=== PATIENT | female | born 1960 | race Caucasian/White ===

== ENCOUNTER 2017-11-02 09:21 | Inpatient (IN) ==
[2017-10-28 20:02] LABS: Basophils # (Auto) 0 K/mcL (0.0-0.3); Basophils % (Auto) 0.3 % (0.0-2.0); Eosinophils # (Auto) 0.1 K/mcL (0.0-0.7); Eosinophils % (Auto) 1.3 % (0.0-7.0); Granulocytes % (Auto) 68.8 % (38.0-78.0); Lymphocytes # (Auto) 2.5 K/mcL (1.5-4.8); Lymphocytes % (Auto) 23.9 % (15.5-49.0); Mean Cell Volume 95.6 fL (80.0-100.0); Mean Corpuscular HGB Conc 34.1 g/dL (31.0-36.0); Mean Corpuscular Hemoglobin 32.6 pg (26.0-34.0); Monocytes # (Auto) 0.6 K/mcL (0.1-0.9); Monocytes % (Auto) 5.7 % (1.0-12.0); Platelet Count 158 K/mcL (140-440); RBC 4.67 M/mcL (4.00-5.20); Red Cell Distribution Width 13.8 % (11.5-14.5)
[2017-10-28 20:18] LABS: Blood Urea Nitrogen 13 mg/dl (6-20)
[2017-10-29 10:59] LABS: Appearance,Urine CLEAR; Bacteria,Urine 0 /hpf (0); Bilirubin,Urine NEG (NEG); Color,Urine STRAW; Glucose,Urine (UA) NEGATIVE (NEG); Leukocyte Esterase,Urine NEG /uL (NEG); Protein,Urine NEG (NEG); Specific Gravity,Urine 1.008 (1.000-1.035); Urine Blood NEG mg/dL (<0.03); Urine RBC < 1 /hpf (0-1); Urine Squamous Epithelial Cell 3 /hpf (0-4); Urine WBC 1 /hpf (0-4); Urobilinogen,Urine NEG (NEG)
[~2017-11-02 09:21] MED LIST: ACETAMINOPHEN 500 MG TABLET PO SCH; CELECOXIB 200 MG CAPSULE PO SCH; PREGABALIN 75 MG CAPSULE PO SCH; ceFAZolin 1 GM VIAL IV SCH; oxyCODONE 10 MG TAB.ER.12H PO SCH
[2017-11-02] MEDS ORDERED: KETOROLAC 30 MG, ROPIVACAINE HCL/PF 49.5 ML, EPINEPHrine 0.5 MG, 0.9 % SODIUM CHLORIDE ... IJ ONE (10:17)
[2017-11-02] MEDS ORDERED: GENTAMICIN SULFATE 800 MG/20 ML VIAL IR ONE (11:29)
[2017-11-02] MEDS ORDERED: ONDANSETRON 4 MG/2 ML VIAL IV ONE (11:50)
[2017-11-02] MEDS ORDERED: PHENYLEPHRINE 10 MG/ML VIAL IV ONE (11:50)
[2017-11-02] MEDS ORDERED: LIDOCAINE HCL/PF 100 MG/5 ML SYRINGE IV ONE (11:50)
[2017-11-02] MEDS ORDERED: KETAMINE 100 MG/ML ML IV ONE (11:50)
[2017-11-02] MEDS ORDERED: MIDAZOLAM 2 MG/2 ML VIAL IV ONE (11:50)
[2017-11-02] MEDS ORDERED: TRANEXAMIC ACID 1,000 MG/10 ML VIAL IV ONE ×2 (11:50→13:38)
[2017-11-02] MEDS ORDERED: PROPOFOL 200 MG/20 ML VIAL IV ONE (11:50)
[2017-11-02] MEDS ORDERED: GLYCOPYRROLATE 0.2 MG/ML VIAL IV ONE (11:50)
[2017-11-02] MEDS ORDERED: MEPERIDINE 25 MG/ML SYRINGE IV PRN (13:34)
[2017-11-02] MEDS ORDERED: IPRATROPIUM/ALBUTEROL 3 ML AMPUL.NEB NEB PRN (13:34)
[2017-11-02] MEDS ORDERED: fentaNYL 100 MCG/2 ML VIAL IV PRN (13:34)
[2017-11-02] MEDS ORDERED: METHOCARBAMOL 1,000 MG/10 ML VIAL IV PRN (13:34)
[2017-11-02] MEDS ORDERED: PROMETHAZINE 25 MG/ML VIAL IV PRN (13:34)
[2017-11-02] MEDS ORDERED: FLEETS ADULT ENEMA PR PRN (13:38)
[2017-11-02] MEDS ORDERED: BISACODYL 10 MG SUPP.RECT PR PRN (13:38)
[2017-11-02] MEDS ORDERED: POLYETHYLENE GLYCOL 3350 17 GM PACKET PO PRN (13:38)
[2017-11-02] MEDS ORDERED: HYDROmorphone 2 MG/ML VIAL IV PRN (13:38)
[2017-11-02] MEDS ORDERED: TEMAZEPAM 15 MG CAPSULE PO PRN (13:38)
[2017-11-02] MEDS ORDERED: BENZOCAINE/MENTHOL 1 LOZENGE PO PRN (13:38)
[2017-11-02] MEDS ORDERED: MAGNESIUM HYDROXIDE 30 ML ORAL.SUSP PO PRN (13:38)
[2017-11-02] MEDS ORDERED: ACETAMINOPHEN 325 MG TABLET PO PRN (13:38)
[2017-11-02] MEDS ORDERED: ONDANSETRON 4 MG/2 ML VIAL IV PRN (13:38)
[2017-11-02] MEDS ORDERED: PROMETHAZINE 25 MG/ML VIAL ONE (13:42)
[2017-11-02] MEDS ORDERED: IPRATROPIUM/ALBUTEROL 3 ML AMPUL.NEB NEB ONE (13:43)
[2017-11-02] MEDS ORDERED: LACTATED RINGERS 1,000 ML IV SCH (13:45)
--- NOTE | 2017-11-02 14:29 | XRay Report ---
HISTORY: Reason for Exam:Post-Op Total Hip FINDINGS: There is a well-positioned left total hip prosthesis. There is no fracture or periarticular soft tissue calcification. There is a coarse macrocalcification in the left adnexa. This was seen on a prior pelvic CT and remains stable. IMPRESSION: Well-positioned left hip prosthesis Interpreted and Authenticated by: Danyel Galan 11/02/17
[2017-11-02] MEDS: 0.9 % SODIUM CHLORIDE 10 ML SYRINGE IV SCH ×2 (14:37→20:17)
--- NOTE | 2017-11-02 15:17 | Brief Operative Note ---
Date of procedure: 11/02/17 Pre-op diagnosis: left hip djd severe Post-op diagnosis: same Procedure: left total hip Grafts/Implants: Yes Anesthesia: GETA Complications: none Complications Description: 11/02/17 15:16 none Surgeon: Maikel Ryan Gang Miner: Cain Camacho Estimated blood loss (cc): 20 Tourniquet Time (Minutes): 50 Specimens Removed/Pathology: none sent Condition: stable Disposition: PACU
--- NOTE | 2017-11-02 16:09 | Operative Note ---
DATE OF OPERATION: 11/02/2017 PREOPERATIVE DIAGNOSIS: Left hip degenerative arthritis. POSTOPERATIVE DIAGNOSIS: Left hip degenerative arthritis. PROCEDURE: Left total hip arthroplasty. SURGEON: Maikel Ryan M.D. EQUALIZING SAW OPERATOR: Cain Camacho PA-C. ANESTHESIA: General LMA anesthesia. COMPLICATIONS: None. ESTIMATED BLOOD LOSS: About 20 to 50 mL. IMPLANTS: A size 3 femoral stem cementless with a 52 mm cup with a neutral 36 mm head. Images were taken during the case. DESCRIPTION OF PROCEDURE: The patient was brought to the operating room and put to sleep with general LMA anesthesia. Once asleep, a timeout was performed confirming the operative site. We made a superior approach to the hip, dissecting down through the fascial layer and released the superior capsule. We dislocated the hip superiorly, and we made our neck cut at about 34 mm. I then reamed up to the size 52, implanted a 52 cup with a 30 mm screw with good purchase. We placed a poly liner without a knight. It was made for a 36 mm implant. This was very stable. The alignment was excellent. We then prepared the femur. This was broached up to the size of 3. A 3 stem was then placed at 15 degrees of anteversion. This was imaged, the trial. On the image it was noted the leg was slightly longer than the other leg. We then broached to settle the stem to the lateral calcar, and this seemed to fit very nicely. The leg lengths were very equal at that point, as well as stability up to 90 degrees of rotation. We irrigated thoroughly. We then put the final implant in place, a 36 mm neutral neck head. This was reduced, very stable once more. We repaired the capsule posteriorly and then closed the fascial layer with #1 Stratafix, closed the fatty layer with #1 Stratafix, and then closed the skin with 2-0 Vicryls and jose g. The patient tolerated this well. There was no complication. RBH:bebeto Job ID: [id number] Doc ID: [id number] Maikel Ryan MD
[2017-11-02] MEDS: 0.45 % SODIUM CHLORIDE 1,000 ML IV SCH (17:37)
[2017-11-02] MEDS: NICOTINE 14 MG PATCH ONE ×2 (18:51→19:05)
[2017-11-02] MEDS: HYDROcodone/APAP 10/325MG TABLET PO PRN (18:52)
[2017-11-02] MEDS: NICOTINE 21 MG PATCH TOPICAL SCH (18:59)
[2017-11-02] MEDS ORDERED: NICOTINE 21 MG PATCH ONE (19:01)
[2017-11-02] MEDS: risperiDONE 1 MG TABLET PO SCH ×2 (19:53→20:17)
[2017-11-02] MEDS: cloNIDine HCL 0.1 MG TABLET PO SCH ×2 (19:53→20:17)
[2017-11-02] MEDS: diphenhydrAMINE 25 MG CAPSULE PO SCH ×2 (19:53→20:22)
[2017-11-02] MEDS: CELECOXIB 200 MG CAPSULE PO SCH ×2 (19:53→20:17)
[2017-11-02] MEDS: PRAZOSIN 1 MG CAPSULE PO SCH ×2 (19:53→20:17)
[2017-11-02] MEDS: DOCUSATE SODIUM 100 MG CAPSULE PO SCH (19:54)
[2017-11-02] MEDS: traZODone HCL 150 MG TABLET PO SCH ×2 (19:54→20:17)
[2017-11-02] MEDS: ASPIRIN 325 MG ENTERIC COATED TABLET PO SCH (19:54)
[2017-11-02] MEDS: ceFAZolin 1 GM VIAL IV SCH ×2 (19:55→20:51)
[2017-11-02] MEDS: KETOROLAC 15 MG/ML VIAL IV PRN (20:51)
[2017-11-02] MEDS ORDERED: TEMAZEPAM 15 MG CAPSULE PO SCH (21:00)
[2017-11-02] MEDS ORDERED: TRIAZOLAM 0.25 MG PO SCH (21:00)
[2017-11-02] MEDS ORDERED: SENNOSIDES 1 TABLET PO SCH (21:00)
[2017-11-02] MEDS ORDERED: SERTRALINE 50 MG TABLET PO SCH (21:00)
[2017-11-03] MEDS: 0.45 % SODIUM CHLORIDE 1,000 ML IV SCH ×2 (00:09→09:49)
[2017-11-03] MEDS: HYDROcodone/APAP 10/325MG TABLET PO PRN ×4 (00:11→15:18)
[2017-11-03] MEDS: KETOROLAC 15 MG/ML VIAL IV PRN (03:44)
[2017-11-03] MEDS: ceFAZolin 1 GM VIAL IV SCH (03:44)
[2017-11-03] MEDS: 0.9 % SODIUM CHLORIDE 10 ML SYRINGE IV SCH ×2 (04:30→15:20)
[2017-11-03] MEDS ORDERED: OMEPRAZOLE 20 MG CAPSULE PO SCH (07:30)
[2017-11-03] MEDS: CELECOXIB 200 MG CAPSULE PO SCH (08:02)
[2017-11-03] MEDS: cloNIDine HCL 0.1 MG TABLET PO SCH (08:02)
[2017-11-03] MEDS: ASPIRIN 325 MG ENTERIC COATED TABLET PO SCH (08:02)
[2017-11-03] MEDS: DOCUSATE SODIUM 100 MG CAPSULE PO SCH (08:03)
[2017-11-03] MEDS ORDERED: LORATADINE 10 MG TABLET PO SCH (09:00)
[2017-11-03] MEDS ORDERED: OXYBUTYNIN CHLORIDE 5 MG TAB.XL.24H PO SCH (09:00)
[2017-11-03] MEDS: NICOTINE 21 MG PATCH TOPICAL SCH (10:26)
--- NOTE | 2017-11-03 12:40 | Discharge Summary ---
Ortho Discharge - [facility] - Patient Instructions Diet: Regular Diet Activity: activity as tolerated, weight bearing as tolerated Total Hip Protocol: Follow activity instructions as provided by Physical Therapy. Dressing Care: No dressing - open to air - Follow Up Plan Follow Up Appointments: Cain Camacho PA-C [Physician Oven Technician] - 11/17/17 3:10 pm Disposition: Hospice - Home Prognosis: Good Rehab Potential: Good I certify that the patient requires SNF services: No Overall status at discharge: patient is progressing back to baseline - Orders For Discharge Prescriptions: HYDROcodone/APAP 10/325MG [[place] 10-325Mg] 10 - 20 mg PO Q4HP PRN #60 tab PRN Reason: Pain Level 3-6 Additional Discharge Orders: Physical Therapy at Discharge - [facility] Location: Determined By Patient Toilet Riser Discharge Order Location: Determined By Patient Walker Location: Determined By Patient
== END 2017-11-03 15:35 | disposition hospice, home (50) | DRG 470 ==
LOC: MEDSUR 09:21
PROVIDERS: ADMIT Orthopaedic Surgery; ATTEND Orthopaedic Surgery

== ENCOUNTER 2017-12-25 11:30 | Inpatient (IN) ==
[2017-12-25 15:05] LABS: Basophils # (Auto) 0 K/mcL (0.0-0.3); Basophils % (Auto) 0.3 % (0.0-2.0); Eosinophils # (Auto) 0.1 K/mcL (0.0-0.7); Eosinophils % (Auto) 0.9 % (0.0-7.0); Granulocytes % (Auto) 60.6 % (38.0-78.0); Lymphocytes # (Auto) 2.2 K/mcL (1.5-4.8); Lymphocytes % (Auto) 30.6 % (15.5-49.0); Mean Cell Volume 94.2 fL (80.0-100.0); Mean Corpuscular HGB Conc 34.9 g/dL (31.0-36.0); Mean Corpuscular Hemoglobin 32.9 pg (26.0-34.0); Monocytes # (Auto) 0.5 K/mcL (0.1-0.9); Monocytes % (Auto) 7.6 % (1.0-12.0); Platelet Count 162 K/mcL (140-440); RBC 4.34 M/mcL (4.00-5.20); Red Cell Distribution Width 13.7 % (11.5-14.5)
[2017-12-25 15:28] LABS: Appearance,Urine CLEAR; Bilirubin,Urine NEG (NEG); Color,Urine YELLOW; Glucose,Urine (UA) NEGATIVE (NEG); Leukocyte Esterase,Urine NEG /uL (NEG); Protein,Urine NEG (NEG); Specific Gravity,Urine 1.011 (1.000-1.035); Urine Blood NEG mg/dL (<0.03); Urobilinogen,Urine NEG (NEG)
[2017-12-25 16:20] LABS: Blood Urea Nitrogen 12 mg/dl (6-20)
[2017-12-28] MEDS ORDERED: PREGABALIN 75 MG CAPSULE PO SCH (07:00)
[2017-12-28] MEDS ORDERED: oxyCODONE 10 MG TAB.ER.12H PO SCH (07:00)
[2017-12-28] MEDS ORDERED: 0.9 % SODIUM CHLORIDE 9 ML, KETOROLAC 30 MG, ROPIVACAINE HCL/PF 49.5 ML, EPINEPHrine 0.... IJ SCH (07:00)
[2017-12-28] MEDS ORDERED: ACETAMINOPHEN 500 MG TABLET PO SCH (07:45)
[2017-12-28] MEDS ORDERED: ceFAZolin 1 GM VIAL IV SCH (07:45)
[2017-12-28] MEDS ORDERED: IPRATROPIUM/ALBUTEROL 3 ML AMPUL.NEB NEB ONE (15:44)
[2017-12-28] MEDS ORDERED: ONDANSETRON 4 MG/2 ML VIAL ONE (16:15)
[2017-12-28] MEDS ORDERED: PHENYLEPHRINE 10 MG/ML VIAL ONE (16:15)
[2017-12-28] MEDS ORDERED: MIDAZOLAM 5 MG/5 ML VIAL ONE (16:15)
[2017-12-28] MEDS ORDERED: DEXAMETHASONE 10 MG/ML VIAL ONE (16:15)
[2017-12-28] MEDS ORDERED: LIDOCAINE HCL/PF 100 MG/5 ML SYRINGE IV ONE (16:15)
[2017-12-28] MEDS ORDERED: SUCCINYLCHOLINE 20 MG/ML ML IV ONE (16:15)
[2017-12-28] MEDS ORDERED: PROPOFOL 200 MG/20 ML VIAL IV ONE (16:15)
[2017-12-28] MEDS ORDERED: KETAMINE 100 MG/ML ML ONE (16:15)
[2017-12-28] MEDS ORDERED: ONDANSETRON 4 MG/2 ML VIAL IV PRN ×2 (17:15→17:37)
[2017-12-28] MEDS ORDERED: METHOCARBAMOL 1,000 MG/10 ML VIAL IV PRN (17:15)
[2017-12-28] MEDS ORDERED: NALOXONE HCL 0.4 MG/ML VIAL IV PRN (17:15)
[2017-12-28] MEDS ORDERED: LACTATED RINGERS 1,000 ML IV SCH (17:15)
[2017-12-28] MEDS ORDERED: PROMETHAZINE 25 MG/ML VIAL IV PRN (17:15)
[2017-12-28] MEDS ORDERED: HYDROmorphone 2 MG/ML VIAL IV PRN (17:15)
[2017-12-28] MEDS ORDERED: IPRATROPIUM/ALBUTEROL 3 ML AMPUL.NEB NEB PRN (17:15)
[2017-12-28] MEDS ORDERED: METOPROLOL TARTRATE 5 MG/5 ML VIAL IV PRN (17:15)
[2017-12-28] MEDS ORDERED: ATROPINE SULFATE 0.4 MG/ML VIAL IV PRN (17:15)
[2017-12-28] MEDS ORDERED: diphenhydrAMINE 50 MG/ML VIAL IV PRN (17:15)
[2017-12-28] MEDS ORDERED: FLUMAZENIL 0.1 MG/ML ML IV PRN (17:15)
[2017-12-28] MEDS ORDERED: ePHEDrine 50 MG/ML AMPUL IV PRN (17:15)
[2017-12-28] MEDS ORDERED: MEPERIDINE 25 MG/ML SYRINGE IV PRN (17:15)
[2017-12-28] MEDS ORDERED: fentaNYL 100 MCG/2 ML VIAL IV PRN (17:15)
[2017-12-28] MEDS ORDERED: GENTAMICIN SULFATE 800 MG/20 ML VIAL IR ONE (17:34)
[2017-12-28] MEDS ORDERED: KETOROLAC 15 MG/ML VIAL IV PRN (17:37)
[2017-12-28] MEDS ORDERED: POLYETHYLENE GLYCOL 3350 17 GM PACKET PO PRN (17:37)
[2017-12-28] MEDS ORDERED: ACETAMINOPHEN 325 MG TABLET PO PRN (17:37)
[2017-12-28] MEDS ORDERED: MAGNESIUM HYDROXIDE 30 ML ORAL.SUSP PO PRN (17:37)
[2017-12-28] MEDS ORDERED: BISACODYL 10 MG SUPP.RECT PR PRN (17:37)
[2017-12-28] MEDS ORDERED: BENZOCAINE/MENTHOL 1 LOZENGE PO PRN (17:37)
[2017-12-28] MEDS ORDERED: HYDROcodone/APAP 10/325MG TABLET PO PRN (17:37)
[2017-12-28] MEDS ORDERED: TEMAZEPAM 15 MG CAPSULE PO PRN (17:37)
[2017-12-28] MEDS ORDERED: FLEETS ADULT ENEMA PR PRN (17:37)
[2017-12-28] MEDS ORDERED: TRANEXAMIC ACID 1,000 MG/10 ML VIAL IV ONE ×2 (17:37→17:53)
--- NOTE | 2017-12-28 17:37 | Brief Operative Note ---
Date of procedure: 12/28/17 Pre-op diagnosis: left posterior hip dislocation Post-op diagnosis: same Procedure: left hip revision one component cup Grafts/Implants: Yes Anesthesia: GETA, none Surgeon: Maikel Ryan Asbestos Textile Supervisor: Alonso Devi Estimated blood loss (cc): 20 Specimens Removed/Pathology: none sent Condition: stable Disposition: PACU
[2017-12-28] MEDS ORDERED: METHOCARBAMOL 1,000 MG/10 ML VIAL IV ONE (17:52)
[2017-12-28] MEDS ORDERED: ALBUTEROL SULFATE 1 PUFF INHALER INH PRN (17:57)
[2017-12-28] MEDS ORDERED: NICOTINE 21 MG PATCH ONE (19:03)
[2017-12-28] MEDS: ASPIRIN 325 MG ENTERIC COATED TABLET PO SCH (20:55)
[2017-12-28] MEDS: DOCUSATE SODIUM 100 MG CAPSULE PO SCH (20:55)
[2017-12-28] MEDS: 0.45 % SODIUM CHLORIDE 1,000 ML IV SCH (20:55)
[2017-12-28] MEDS: 0.9 % SODIUM CHLORIDE 10 ML SYRINGE IV SCH (20:56)
[2017-12-28] MEDS ORDERED: SERTRALINE 50 MG TABLET PO SCH (21:00)
[2017-12-28] MEDS ORDERED: SENNOSIDES 1 TABLET PO SCH (21:00)
[2017-12-28] MEDS ORDERED: QUEtiapine 25 MG TABLET PO SCH (21:00)
[2017-12-28] MEDS: HYDROmorphone 2 MG/ML VIAL IV PRN (22:42)
[2017-12-28] MEDS: NICOTINE 21 MG PATCH TOPICAL SCH (22:43)
[2017-12-29] MEDS: ceFAZolin 1 GM VIAL IV SCH ×2 (00:32→11:07)
[2017-12-29] MEDS ORDERED: ceFAZolin 1 GM VIAL ONE (00:33)
[2017-12-29] MEDS: HYDROmorphone 2 MG/ML VIAL IV PRN (04:18)
[2017-12-29] MEDS: 0.9 % SODIUM CHLORIDE 10 ML SYRINGE IV SCH ×2 (04:23→16:35)
[2017-12-29] MEDS: 0.45 % SODIUM CHLORIDE 1,000 ML IV SCH (04:24)
[2017-12-29] MEDS: NICOTINE 21 MG PATCH TOPICAL SCH ×2 (07:20→11:00)
[2017-12-29] MEDS ORDERED: OMEPRAZOLE 20 MG CAPSULE PO SCH (07:30)
--- NOTE | 2017-12-29 07:40 | Discharge Summary ---
Ortho Discharge - [facility] - Patient Instructions Diet: Regular Diet Activity: activity as tolerated, weight bearing as tolerated Total Hip Protocol: Follow activity instructions as provided by Physical Therapy. Dressing Care: [place] - leave on for 5 days - Follow Up Plan Follow Up Appointments: Cain Camacho PA-C [Physician Timekeeper Supervisor] - 01/12/18 1:10 pm Disposition: Home, Self-Care Prognosis: Good Rehab Potential: Good I certify that the patient requires SNF services: No Overall status at discharge: patient is progressing back to baseline - Orders For Discharge Prescriptions: HYDROcodone/APAP 10/325MG [[place] 10-325Mg] 10 - 20 mg PO Q4HP PRN #60 tab PRN Reason: Pain Level 3-6 oxyCODONE HCL [Roxicodone] 5 - 10 mg PO Q4-6HP PRN #60 tab PRN Reason: Pain Additional Discharge Orders: Physical Therapy at Discharge - [facility] Location: None Selected Physical Therapy at Discharge - [facility] Location: None Selected To[facility]t [facility] Discharge Order Location: None Selected
--- NOTE | 2017-12-29 07:46 | XRay Report ---
HISTORY: ITS.REASON: Post-Op Total Hip FINDINGS: There is a well-positioned left total hip prosthesis. No fracture is present and there are no abnormal soft tissue calcifications around the joint. A large spur is seen along the inferior border of the left SI joint. There is arthritis in the facets in the lower lumbar spine. IMPRESSION: Well-positioned left hip prosthesis Interpreted and Authenticated by: Danyel Galan 12/29/17
[2017-12-29] MEDS: oxyCODONE HCL 5 MG TABLET PO PRN ×4 (08:16→12:47)
[2017-12-29] MEDS: ASPIRIN 325 MG ENTERIC COATED TABLET PO SCH (08:16)
[2017-12-29] MEDS: DOCUSATE SODIUM 100 MG CAPSULE PO SCH (08:19)
[2017-12-29] MEDS ORDERED: INCRUSE ELLIPTA INH SCH (09:00)
[2017-12-29] MEDS ORDERED: CELECOXIB 200 MG CAPSULE PO SCH (09:00)
[2017-12-29] MEDS ORDERED: OXYBUTYNIN CHLORIDE 5 MG TAB.XL.24H PO SCH (09:00)
[2017-12-29] MEDS ORDERED: LORATADINE 10 MG TABLET PO SCH (09:00)
--- NOTE | 2017-12-29 09:18 | Operative Note ---
DATE OF OPERATION: 12/28/2017 PREOPERATIVE DIAGNOSIS: Left hip instability. POSTOPERATIVE DIAGNOSIS: Left hip instability. PROCEDURE: Left total hip revision of the acetabular side. SURGEON: Maikel Ryan M.D. SUPERVISOR LIQUEFACTION: Alonso Devi PA-C. ANESTHESIA: General LMA anesthesia. COMPLICATIONS: None. ESTIMATED BLOOD LOSS: About 20 to 30 mL. DESCRIPTION OF PROCEDURE: The patient was brought to the operating room and placed supine on the operating room table. Once asleep, the patient had the left hip sterilely prepped and draped in the right lateral position. We confirmed this with a timeout as the operative site. We made an incision through the prior scar. Through this, I was able to assess the hip after placing a Charnley retractor. There were no signs of infection. We then rotated the hip up to 45 degrees and started subluxing and dislocating posteriorly impinging on the anterior capsule. I released the anterior capsule anteriorly. I placed a dual mobility liner, removed the femoral head which was a 36 mm head, 0 length addition. I then placed a +4, +8 and then I trialed the +12. The +12 finally stabilized the hip to the point where the hip could go up to 70-80 degrees without any impingement. We irrigated thoroughly and implanted the dual mobility liner into the acetabulum after removing the poly liner. I then placed the dual mobility ball and head which had a +12 neck length. We irrigated. Tension seemed to be appropriate. We then repaired the gluteus alverto with #1 Stratafix x2 sutures. We closed the skin with 2-0 Vicryl and adhesive closure. The patient tolerated this well without complication. Sterile bandage was applied. YOUNG:bebeto Job ID: [id number] Doc ID: [id number] Maikel Ryan MD
[2017-12-29] MEDS ORDERED: ceFAZolin 1 GM VIAL IV ONE (11:00)
== END 2017-12-29 16:05 | disposition home or self-care (01) | DRG 467 ==
LOC: MEDSUR 12-28 11:56
PROVIDERS: ADMIT Orthopaedic Surgery; ATTEND Orthopaedic Surgery

== ENCOUNTER 2018-12-06 09:44 | Inpatient (IN) ==
[2018-11-30 17:20] LABS: Basophils # (Auto) 0 K/mcL (0.0-0.3); Basophils % (Auto) 0.3 % (0.0-2.0); Eosinophils # (Auto) 0.1 K/mcL (0.0-0.7); Eosinophils % (Auto) 0.9 % (0.0-7.0); Granulocytes % (Auto) 61.6 % (38.0-78.0); Hematocrit 38.9 % (36.0-48.0); Hemoglobin 13.4 g/dL (12.0-15.0); Lymphocytes # (Auto) 1.7 K/mcL (1.5-4.8); Lymphocytes % (Auto) 29.7 % (15.5-49.0); Mean Cell Volume 94.3 fL (80.0-100.0); Mean Corpuscular HGB Conc 34.4 g/dL (31.0-36.0); Mean Platelet Volume 9.5 fL (7.4-10.4); Monocytes # (Auto) 0.4 K/mcL (0.1-0.9); Monocytes % (Auto) 7.5 % (1.0-12.0); Platelet Count 150 K/mcL (140-440); RBC 4.13 M/mcL (4.00-5.20); Red Cell Distribution Width 13.9 % (11.5-14.5); WBC 5.6 K/mcL (4.5-11.0)
[2018-11-30 17:51] LABS: Blood Urea Nitrogen 9 mg/dl (6-20); Calcium 8.9 mg/dl (8.6-10.4); Carbon Dioxide 23 mmol/L (22-30); Chloride 103 mmol/L (96-108); Glomerular Filtration Rate 94; Glucose 76 mg/dL (70-105)
[2018-11-30 18:29] LABS: Appearance,Urine CLEAR; Bacteria,Urine 0 /hpf (0); Bilirubin,Urine NEG (NEG); Color,Urine STRAW; Culture Indicated,Urine NO; Glucose,Urine (UA) NEGATIVE (NEG); Ketones,Urine NEG (NEG); Leukocyte Esterase,Urine 25 /uL (NEG); Nitrate,Urine NEG (NEG); Protein,Urine NEG (NEG); Specific Gravity,Urine 1.006 (1.000-1.035); Urine Blood NEG mg/dL (<0.03); Urine RBC < 1 /hpf (0-1); Urine Squamous Epithelial Cell 2 /hpf (0-4); Urine WBC 8 /hpf (0-4); Urobilinogen,Urine NEG (NEG)
[~2018-12-06 09:44] MED LIST changes: +0.9 % SODIUM CHLORIDE 9 ML, KETOROLAC 30 MG, ROPIVACAINE HCL/PF 49.5 ML, EPINEPHrine 0.... IJ SCH; -ceFAZolin 1 GM VIAL IV SCH; +ceFAZolin 2 GM in DEXTROSE 5% IN WATER 50 ML IV SCH
[2018-12-06] MEDS ORDERED: GENTAMICIN SULFATE 800 MG/20 ML VIAL IR ONE (12:12)
[2018-12-06] MEDS ORDERED: PHENYLEPHRINE 10 MG/ML VIAL IV ONE (13:20)
[2018-12-06] MEDS ORDERED: ONDANSETRON 4 MG/2 ML VIAL IV ONE (13:20)
[2018-12-06] MEDS ORDERED: PROPOFOL 200 MG/20 ML VIAL IV ONE (13:20)
[2018-12-06] MEDS ORDERED: TRANEXAMIC ACID 1,000 MG/10 ML VIAL IV ONE (13:20)
[2018-12-06] MEDS ORDERED: DEXAMETHASONE 10 MG/ML VIAL IV ONE (13:20)
[2018-12-06] MEDS ORDERED: LIDOCAINE HCL/PF 100 MG/5 ML SYRINGE IV ONE (13:20)
[2018-12-06] MEDS ORDERED: KETAMINE 100 MG/ML ML IV ONE (13:20)
[2018-12-06] MEDS ORDERED: GLYCOPYRROLATE 0.2 MG/ML VIAL IV ONE (13:20)
[2018-12-06] MEDS ORDERED: MIDAZOLAM 5 MG/5 ML VIAL IV ONE (13:20)
[2018-12-06] MEDS ORDERED: FLUMAZENIL 0.1 MG/ML ML IV PRN (14:09)
[2018-12-06] MEDS ORDERED: HYDROmorphone 2 MG/ML VIAL IV PRN ×2 (14:09→14:42)
[2018-12-06] MEDS ORDERED: ONDANSETRON 4 MG/2 ML VIAL IV PRN ×2 (14:09→14:42)
[2018-12-06] MEDS ORDERED: BENZOCAINE/MENTHOL 1 LOZENGE PO PRN ×2 (14:09→14:42)
[2018-12-06] MEDS ORDERED: MEPERIDINE 25 MG/ML SYRINGE IV PRN (14:09)
[2018-12-06] MEDS ORDERED: IPRATROPIUM/ALBUTEROL 3 ML AMPUL.NEB NEB PRN (14:09)
[2018-12-06] MEDS ORDERED: METHOCARBAMOL 1,000 MG/10 ML VIAL IV PRN (14:09)
[2018-12-06] MEDS ORDERED: fentaNYL 100 MCG/2 ML VIAL IV PRN (14:09)
[2018-12-06] MEDS ORDERED: LACTATED RINGERS 250 ML IV PRN (14:09)
[2018-12-06] MEDS ORDERED: NALOXONE HCL 0.4 MG/ML VIAL IV PRN (14:09)
[2018-12-06] MEDS ORDERED: LACTATED RINGERS 1,000 ML IV SCH (14:15)
[2018-12-06] MEDS ORDERED: POLYETHYLENE GLYCOL 3350 17 GM PACKET PO PRN (14:42)
[2018-12-06] MEDS ORDERED: KETOROLAC 15 MG/ML VIAL IV PRN (14:42)
[2018-12-06] MEDS ORDERED: MAGNESIUM HYDROXIDE 30 ML ORAL.SUSP PO PRN (14:42)
[2018-12-06] MEDS ORDERED: ACETAMINOPHEN 325 MG TABLET PO PRN (14:42)
[2018-12-06] MEDS ORDERED: BISACODYL 10 MG SUPP.RECT PR PRN (14:42)
[2018-12-06] MEDS ORDERED: FLEETS ADULT ENEMA PR PRN (14:42)
[2018-12-06] MEDS ORDERED: TRANEXAMIC ACID 1,000 MG/10 ML VIAL IV SCH (14:42)
--- NOTE | 2018-12-06 14:42 | Brief Operative Note ---
Date of procedure: 12/06/18 Pre-op diagnosis: right hip djd severe Post-op diagnosis: same Procedure: right mckenzie cementless Grafts/Implants: Yes Anesthesia: GETA Surgeon: Maikel Ryan Marine Habitat Resource Specialist: Cain Camacho Estimated blood loss (cc): 200 Specimens Removed/Pathology: none sent Condition: stable Disposition: PACU
[2018-12-06] MEDS ORDERED: ALBUTEROL SULFATE 1 PUFF INHALER INH PRN (14:44)
[2018-12-06] MEDS ORDERED: ACETAMINOPHEN W/CODEINE #3 1 TABLET PO PRN (14:44)
[2018-12-06] MEDS ORDERED: QUEtiapine 25 MG TABLET PO PRN (14:44)
--- NOTE | 2018-12-06 15:09 | Operative Note ---
DATE OF OPERATION: 12/06/2018 PREOPERATIVE DIAGNOSIS: Right hip degenerative arthritis. POSTOPERATIVE DIAGNOSIS: Right hip degenerative arthritis. PROCEDURE: Right total hip arthroplasty. SURGEON: Maikel Ryan M.D. MANAGER PRESENTATION: Cain Camacho PA-C. The PA's assistance was required for the safe and efficient completion of the entire case. This provider's expertise and technical skill were required throughout the case. The PA assisted with preoperative coordination, intraoperative retraction, wound closure, dressing and splint application, as well as postoperative documentation and care coordination. ANESTHESIA: General LMA anesthesia. COMPLICATIONS: None. BLOOD LOSS: About 100 to 200 mL. BLOOD PRODUCTS GIVEN: None. DESCRIPTION OF PROCEDURE: The patient was brought to the operating room, put to sleep with general LMA anesthesia. Once asleep, the patient had the right hip sterilely prepped and draped in the usual sterile fashion. Timeout was performed. We confirmed this was the operative site by initials, consent form, and x-rays. A superior approach was performed into the hip, preserving the muscles anteriorly and posteriorly. We dislocated the hip superiorly and then made our neck cut at 32 mm below the center of hip rotation. Once done, we then reamed up to the size 52, and implanted a 52 cup with a 35 mm screw with good purchase. A hooded liner was then placed for a 52 cup for a 36 mm ball. We then broached up to the size 4 for the stem with Accolade, and this seemed to fit very nicely. We took an x-ray that showed slight leg lengthening of the right compared to left. At this point, we then broached further into the bone and this seemed to fit very nicely. At this point, we then implanted a size 4 stem with distal cement placement to fix the stem given her tobacco use and COPD history. This was sat into place using very distal cement and proximal ingrowth of the cementless stem. Once purchased, we then trialed the +2.5 neck which seemed to be the most appropriate, making it perfectly stable. It had 36 mm hooded liner in the cup and this gave us complete stability up to 90 degrees of rotation. We irrigated thoroughly and placed a 2.5 plus neck length with a 36 mm head, which was made of ceramic, into place, reduced and then repaired the capsule with #2 Ethibond. We closed the fascial layer with #1 Stratafix, closed the soft tissue and the fatty layer with #1 Stratafix, and then closed the skin with Stratafix and adhesive closure. The patient tolerated this well with no complications. Blood loss was about 200 mL. RBH:bebeto Job ID: [id number] Doc ID: [id number] Maikel Ryan MD
--- NOTE | 2018-12-06 15:42 | XRay Report ---
CLINICAL INFORMATION: Post-op Total Hip COMPARISON: None. FINDINGS: Right total hip prostheses is anatomically aligned. Older left hip prostheses is also anatomically aligned without loosening or infection. No osseous abnormality. Soft tissue swelling over the surgical site seen as expected. IMPRESSION: Negative Interpreted and Authenticated by: Cory Dunn 12/06/18
[2018-12-06] MEDS: 0.45 % SODIUM CHLORIDE 1,000 ML IV SCH (16:07)
[2018-12-06] MEDS: NICOTINE 21 MG PATCH TOPICAL SCH (16:18)
[2018-12-06] MEDS: HYDROcodone/APAP 10/325MG TABLET PO PRN ×3 (18:13→23:18)
--- NOTE | 2018-12-06 18:30 | XRay Report ---
CLINICAL INFORMATION: right total hip athroplasty COMPARISON: None. FINDINGS: Intraoperative film shows right femoral stem template and the acetabular prostheses to be near anatomic alignment. IMPRESSION: Intraoperative film Interpreted and Authenticated by: Cory Dunn 12/06/18
[2018-12-06] MEDS: DOCUSATE SODIUM 100 MG CAPSULE PO SCH (20:15)
[2018-12-06] MEDS: ASPIRIN 325 MG ENTERIC COATED TABLET PO SCH (20:15)
[2018-12-06] MEDS: CELECOXIB 200 MG CAPSULE PO SCH (20:15)
[2018-12-06] MEDS: ceFAZolin 1 GM VIAL IV SCH (20:27)
[2018-12-06] MEDS: 0.9 % SODIUM CHLORIDE 10 ML SYRINGE IV SCH (20:27)
[2018-12-06] MEDS ORDERED: lamoTRIgine 25 MG TABLET PO SCH (21:00)
[2018-12-06] MEDS ORDERED: TEMAZEPAM 15 MG CAPSULE PO PRN (21:00)
[2018-12-06] MEDS ORDERED: QUEtiapine 25 MG TABLET PO SCH (21:00)
[2018-12-06] MEDS ORDERED: SERTRALINE 50 MG TABLET PO SCH (21:00)
[2018-12-06] MEDS ORDERED: PRAZOSIN 1 MG CAPSULE PO SCH (21:00)
[2018-12-06] MEDS ORDERED: SENNOSIDES 1 TABLET PO SCH (21:00)
[2018-12-07] MEDS: 0.45 % SODIUM CHLORIDE 1,000 ML IV SCH ×2 (00:36→11:32)
[2018-12-07] MEDS: HYDROcodone/APAP 10/325MG TABLET PO PRN ×2 (03:35→10:05)
[2018-12-07] MEDS: ceFAZolin 1 GM VIAL IV SCH (04:16)
[2018-12-07] MEDS: 0.9 % SODIUM CHLORIDE 10 ML SYRINGE IV SCH (05:33)
--- NOTE | 2018-12-07 07:27 | Orthopedic Progress Note ---
Subjective Patient information: Note initiated : 12/07/18 at 7:26 am Service Date, if different from initiated Date: [] Patient: Gabrielle Chambers 58 y/o F admitted on 12/06/18 for Right Total Hip Arthroplasty. Chief Complaint: [Pt is stable this morning on post operative day 1 without any significant concerns or complaints. Patients vital signs have remained stable. Patients dressing is dry and is grossly intact from a neurovascular and motor standpoint. Patients 10 point ROS is otherwise negative. ] Objective Vital signs: Vital Signs Temp Pulse Pulse Pulse Resp BP Pulse Ox 12/07/18 03:12 98.6 F 62 14 99/53 95 12/06/18 23:20 90 16 92 12/06/18 22:57 97.5 F 60 18 109/60 94 12/06/18 19:41 98.9 F 64 20 138/66 100 12/06/18 17:53 65 133/70 98 12/06/18 17:23 58 L 135/64 97 12/06/18 17:00 95 12/06/18 16:53 57 L 133/72 96 12/06/18 16:39 59 L 135/66 94 12/06/18 16:24 57 L 121/60 98 12/06/18 16:09 58 L 133/68 94 12/06/18 15:54 58 L 140/62 96 12/06/18 15:45 98.3 F 58 L 16 157/79 12/06/18 15:35 60 17 120/93 100 12/06/18 15:25 98 F 62 20 111/83 100 12/06/18 15:15 56 L 16 135/68 98 12/06/18 15:05 58 L 18 143/73 98 12/06/18 15:00 62 18 128/68 97 12/06/18 14:56 97.4 F 59 L 12 122/62 99 12/06/18 11:21 97.4 F 74 18 109/77 98 12/06/18 09:44 97.4 F 74 20 109/77 98 Intake and Output 12/06/18 12/07/18 12/07/18 21:59 05:59 13:59 Intake Total 1500 800 Output Total 975 1500 Balance 525 -700 Intake: Oral 800 IV - Manual Only 1500 Output: Urine Catheter Amount 675 Void Amount 300 1500 Other: Meal Dinner Nourishment/Supplement Percent of Meal Consumed 100% 100% Feeding Ability Independent Nourishment/Supplement name jello,fruit cup Urine Appearance Clear Clear Urine Color Bright Yellow Bright Yellow Urine Odor Normal Normal Weight 225 lb Intake & Output: Intake & Output 12/06/18 12/07/18 12/07/18 21:59 05:59 13:59 Intake Total 1500 800 Output Total 975 1500 Balance 525 -700 Weight 225 lb Intake: Oral 800 IV - Manual Only 1500 Output: Urine Catheter Amount 675 Void Amount 300 1500 Other: Meal Dinner Nourishment/Supplement Percent of Meal Consumed 100% 100% Feeding Ability Independent Nourishment/Supplement name jello,fruit cup Urine Appearance Clear Clear Urine Color Bright Yellow Bright Yellow Urine Odor Normal Normal Incision: Yes healing Incision clean and dry: Yes Dressing: Yes clean Weight bearing status: full Neurological exam IM: Yes motor sensory intact, Yes neurovascular intact Extremities exam IM: Yes Foot pink and warm, Yes neurovascular intact - Labs CBC & BMP: 12/07/18 04:18 11/30/18 15:07 Labs: 12/07/18 11/30/18 04:18 15:07 Hgb 13.4 Hct 32.7 L 38.9 Assessment and Plan (1) Hx of total hip arthroplasty The patient has been educated regarding dressing care, Physical Therapy recommendations, home exercises, restrictions, and follow up appointments. The patient has had all necessary DME prescribed. The patient has remained rel atively stable during their hospital course. The patient has been educated regarding dressing care, Physical Therapy recommendations, home exercises, restrictions, and follow up appointments. The patient has had all necessary DME prescribed. The patient has remained relatively stable during their hospital course. Leave Dermabond patch intact until followup Status: Acute
--- NOTE | 2018-12-07 07:29 | Discharge Summary ---
Ortho Discharge - [facility] - Patient Instructions Diet: Regular Diet Activity: activity as tolerated, weight bearing as tolerated Total Hip Protocol: Follow activity instructions as provided by Physical Therapy. Dressing Care: May shower in 2 days - Problem Maintenance (1) Hx of total hip arthroplasty Status: Acute - Follow Up Plan Follow Up Appointments: Cain Camacho PA-C [Physician Chief Pharmacist] - 12/21/18 8:10 am Disposition: Home, Self-Care Prognosis: Good Rehab Potential: Good I certify that the patient requires SNF services: No Overall status at discharge: patient is progressing back to baseline - Orders For Discharge Prescriptions: Aspirin [Ecotrin] 325 mg PO BID #60 tab.ec Docusate Sodium [Colace] 100 mg PO BID #60 cap HYDROcodone/APAP 10/325MG [[place] 10-325Mg] 1 - 2 tab PO Q4HP PRN #75 tab PRN Reason: Pain Level 3-6
[2018-12-07] MEDS ORDERED: OMEPRAZOLE 20 MG CAPSULE PO SCH (07:30)
[2018-12-07] MEDS ORDERED: OXYBUTYNIN CHLORIDE 5 MG TAB.XL.24H PO SCH (09:00)
[2018-12-07] MEDS ORDERED: Anoro Ellipta 1 PUFF INH SCH (09:00)
[2018-12-07] MEDS ORDERED: LOSARTAN 50 MG TABLET PO SCH (09:00)
[2018-12-07] MEDS ORDERED: LORATADINE 10 MG TABLET PO SCH (09:00)
[2018-12-07] MEDS: ASPIRIN 325 MG ENTERIC COATED TABLET PO SCH (10:06)
[2018-12-07] MEDS: DOCUSATE SODIUM 100 MG CAPSULE PO SCH (10:06)
[2018-12-07] MEDS: CELECOXIB 200 MG CAPSULE PO SCH (10:06)
[2018-12-07] MEDS: NICOTINE 21 MG PATCH TOPICAL SCH (10:07)
== END 2018-12-07 15:30 | disposition home or self-care (01) | DRG 470 ==
LOC: MEDSUR 09:44
PROVIDERS: ADMIT Orthopaedic Surgery; ATTEND Orthopaedic Surgery